=== PATIENT | female | born 1980 | race Caucasian/White ===

== ENCOUNTER 2017-07-14 09:36 | Emergency (ER) | payer OTHER ==
[~2017-07-14] VITALS: Ht 165.1 cm; Wt 127.0 kg
--- NOTE | 2017-07-14 09:50 | NUR ---
ARRIVAL PATIENT ARRIVED TO [facility] AMBULATORY WITH FAMILY, C/O OF SWELLING OF THE THROAT THAT COMES AND GOES, DENIES ANY PAIN, IS ABLE TO EAT AND DRINK, BECAME AFRAID AFTER SHE HAD SEVERAL EPISODES, CAME TO THE ED FOR FURTHER EVAL.
[2017-07-14 09:53] VITALS: BP 167/85
--- NOTE | 2017-07-14 10:11 | ER.PDOC ---
General Chief Complaint: Sore Throat Stated Complaint: SORE THROAT,SWELLING,SHORT OF BREATH TRAVEL OUT OF US: No Time seen by MD: 10:08 Source: patient Exam Limitations: no limitations History of Present Illness Initial Comments Throat discomfort with difficulty breathing on and off since this morning. Severity: mild Associated Symptoms: denies symptoms Allergies: Coded Allergies: No Known Allergies (Unverified , 07/14/17) Home Meds Unable to Obtain Active Prescriptions or Reported Meds Past Medical History Medical History: hypertension Surgical History: back, cholecystectomy, , tubal, other LMP (females 10-50): 07/10/17 Social History Smoking: non-smoker Alcohol Use: none Drug Use: none Review of Systems Constitutional: no symptoms reported EENTM: see HPI Respiratory: no symptoms reported Cardiovascular: no symptoms reported Gastrointestinal: no symptoms reported All Other Systems: Reviewed and Negative Physical Exam General Appearance: No Apparent Distress, WD/WN EENT: eyes nml inspection Neck: Non-Tender, Full Range of Motion, Supple Respiratory: chest non-tender, lungs clear, normal breath sounds, no respiratory distress CVS: reg rate & rhythm, no murmur, no gallop, pulses nml, nml capillary refill Gastrointestinal: Normal Bowel Sounds, No Organomegaly, No Pulsatile Mass, Non Tender Back: Normal Inspection Extremities: Normal Range of Motion Neurologic/Psychiatric: branch credit counselor II-XII NML as Tested Skin: Normal Color Results/Orders Results/Orders Laboratory Tests Test 07/14/17 10:20 White Blood Count 6.6 10^3/uL (4.5-11.0) Red Blood Count 4.93 10^6/uL (4.00-5.20) Hemoglobin 11.3 g/dL (12.0-15.0) Hematocrit 36.9 % (36.0-46.0) Mean Corpuscular Volume 74.8 fL (78-100) Mean Corpuscular Hemoglobin 22.9 pg (26-34) Mean Corpuscular Hemoglobin Concent 30.6 g/dL (33-37) Red Cell Distribution Width 19.6 % (11.5-14.5) Platelet Count 359 10^3/uL (150-400) Mean Platelet Volume 10.0 fL (7.8-11.0) Neutrophils (%) (Auto) 70.2 % (41.0-85.0) Lymphocytes (%) (Auto) 18.0 % (24.0-44.0) Monocytes (%) (Auto) 7.3 % (5.0-12.0) Neutrophils # (Auto) 4.7 10^3/uL (1.8-7.7) Lymphocytes # (Auto) 1.2 10^3/uL (1.0-4.8) Monocytes # (Auto) 0.5 10^3/uL (0.3-0.8) Absolute Immature Granulocyte (auto 0.03 10^3 u/L (0-2) Eosinophils % 3.5 % (0.0-5.0) Basophils % 0.5 % (0.0-0.2) Basophils # 0.0 10^3/uL (0.0-0.1) Eosinophil Count 0.2 10^3/uL (0.0-0.2) Sodium Level 138 mmol/L (132-145) Potassium Level 3.8 mmol/L (3.6-5.2) Chloride Level 102.0 mmol/L (96-109) Carbon Dioxide Level 27.8 mmol/L (20.0-32) Glucose Level 94 mg/dL (70-110) Blood Urea Nitrogen 12 mg/dL (7-18) Creatinine 0.98 mg/dL (0.59-1.40) Calcium Level 9.6 mg/dL (8.4-10.5) Anion Gap 12.0 Estimated GFR () 77.7 (>/=60) BUN/Creatinine Ratio 12.0 Serum HCG, Qualitative NEGATIVE (NEGATIVE) Percent Immature Gran (Cell Imm) 0.50 % (0.00-0.50) Group A Streptococcus Screen NEGATIVE (NEGATIVE) Administered Medications Medications (Trade) Dose Ordered Sig/Angel Route PRN Reason Start Time Stop Time Status Last Admin Dose Admin Sodium Chloride 1,000 ml @ 1,200 mls/hr Q50M ONCE IV 07/14/17 10:30 07/14/17 11:19 DC 07/14/17 10:31 EKG/XRAY/CT/US CT Comments: Normal CT neck Departure Time of Disposition: 11:24 Disposition: 01 HOME, SELF-CARE Impression: Primary Impression: Throat discomfort Condition: Stable Referrals: PCP,UNKNOWN (PCP) PRIMARY CARE PROVIDER Additional Instructions: F/U with ENT Surgeon next week if it continues. F/U with your PCP in 2-3 days Scripts Unable to Obtain Active Prescriptions or Reported Meds Duration or Time Spent with Pa: 90 mins CHAN,JERRICA Escalera MD Jul 14, 2017 10:11
[2017-07-14] MEDS ORDERED: NS 1000ML 1,000 ML ONE (10:23)
[2017-07-14 10:30] LABS: BASOPHIL % 0.5 % (0.0-0.2); EOSINOPHIL # 0.2 10^3/uL (0.0-0.2); EOSINOPHIL % 3.5 % (0.0-5.0); HEMOGLOBIN 11.3 g/dL (12.0-15.0); LYMPHOCYTES # 1.2 10^3/uL (1.0-4.8); MEAN CELL HGB 22.9 pg (26-34); MEAN CELL HGB CONCENTRATION 30.6 g/dL (33-37); MEAN CORP VOLUME 74.8 fL (78-100); MONOCYTES # 0.5 10^3/uL (0.3-0.8); MONOCYTES % 7.3 % (5.0-12.0); NEUTROPHIL # 4.7 10^3/uL (1.8-7.7); NEUTROPHILS % 70.2 % (41.0-85.0); PLATELET COUNT 359 10^3/uL (150-400); RED CELL DISTRIBUTION WIDTH 19.6 % (11.5-14.5); WHITE BLOOD CELL 6.6 10^3/uL (4.5-11.0)
[2017-07-14] MEDS ORDERED: NS 1000ML 1,000 ML IV ONE (10:30)
[2017-07-14 10:40] LABS: CALCIUM 9.6 mg/dL (8.4-10.5); CARBON DIOXIDE 27.8 mmol/L (20.0-32)
--- NOTE | 2017-07-14 10:53 | NUR ---
CAT SCAN PATIENT AMBULATORY TO CAT SCAN WITH MIN FROM RADIOLOGY.
--- NOTE | 2017-07-14 11:18 | DIREP ---
PROCEDURE:CT SOFT TISSUE NECK W/CONTRAST COMPARISON:None. INDICATIONS:Throat discomfort TECHNIQUE:CT images were created with intravenous contrast material. Sagittal and coronal reconstructions are performed. FINDINGS: NASOPHARYNX:Normal. Fossae of Rosenmuller and torus tubarius are symmetric. ORAL CAVITY:Normal. No visible mass. OROPHARYNX:Normal. Faucial and lingual tonsils are symmetric. HYPOPHARYNX:Normal. No mass or other visible lesion. LARYNX:Normal. The vocal cords are symmetric and without mass. SINUSES:Normal. Limited views show no significant fluid or mucosal thickening. NECK GLANDS:Normal. The parotid, submandibular, and thyroid glands are unremarkable. LYMPH NODES:Normal. No pathological-appearing or enlarged lymph nodes. SKULL BASE:Normal. Foramina are symmetric without bony erosion. VASCULATURE:Normal. Limited views are unremarkable. BONES:Normal. No significant osseous lesions. OTHER:Normal. No additional imaging findings. CONCLUSION:Normal examination. Dictated by: Dax Pelaez MD on 07/14/2017 at 11:11 AM
[2017-07-14 11:28] LABS: MICROCYTOSIS 2+ (NEGATIVE)
[2017-07-14 11:29] LABS: ELLIPTOCYTES 1+ (NEGATIVE)
[2017-07-14 11:35] VITALS: BP 126/70
== END 2017-07-14 11:35 | disposition home or self-care (01) ==
LOC: ER 09:36
DX: J02.9 Acute pharyngitis, unspecified (principal); R06.00 Dyspnea, unspecified; I10 Essential (primary) hypertension; Z90.49 Acquired absence of other specified parts of digestive tract; Z98.51 Tubal ligation status
CPT/HCPCS: 36415; 70491; 80048; 84703; 85025; 87070; 87880; 96360; 99285; J7030; Q9965